=== PATIENT | male | born 1975 | race Caucasian/White ===

== ENCOUNTER 2017-07-05 18:38 | Emergency (ER) | payer SELFPAY ==
[2017-07-05] MEDS ORDERED: Fluorescein Opthalmic Strip ONE (19:06)
== END 2017-07-05 19:18 | disposition home or self-care (01) ==
LOC: SCSER 18:38
DX: H10.13 Acute atopic conjunctivitis, bilateral (principal); F17.220 Nicotine dependence, chewing tobacco, uncomplicated
CPT/HCPCS: 99283

== ENCOUNTER 2021-11-05 22:07 | Inpatient (IN) | payer SELFPAY ==
[~2021-11-05 22:07] MED LIST: Iopamidol-370 76% 500 ML 1 ML ONE
[2021-11-05] MEDS ORDERED: Ketamine 50 MG/ML (10ML VIAL) ONE (22:46)
[2021-11-06 00:02] LABS: #Eosinphils 0.1 thou/uL (0.0-0.7); #Lymphocytes 0.8 thou/uL (1.20-3.40); #Monocytes 0.7 thou/uL (0.11-0.59); #Neutrophils 10.7 thou/uL (1.40-6.50); %Basophils 0.1 % (0.0-1.0); %Eosinophils 0.5 % (0.0-10.0); %Lymphocytes 6.7 % (21.0-51.0); %Monocytes 5.9 % (0.0-10.0); %Neutrophils 86.8 % (42.0-75.0); Hemoglobin 13.5 g/dL (14.0-18.0); Mean Corpuscular HGB CONC 34.6 g/dL (32.0-36.0); Mean Corpuscular Hemoglobin 32.5 pg (27.0-31.0); Mean Corpuscular Volume 93.9 fL (78.0-98.0); Mean Platelet Volume 8.2 fL (7.4-10.4); Platelet Count 131 thou/uL (130-400); RBC Distribution Width 11.7 % (11.5-14.5); Red Blood Cell (RBC) Count 4.15 mill/uL (4.70-6.10); White Blood Cell (WBC) Count 12.3 thou/uL (4.8-10.8)
[2021-11-06 00:28] LABS: ALT (SGPT) 120 U/L (8-55); AST (SGOT) 118 U/L (5-34); Alcohol 147 mg/dL (Less than 10); Alkaline Phosphatase 50 U/L (40-110); Anion Gap 16 mmol/L (10-20); BUN (Urea Nitrogen) 7 mg/dL (8.9-20.6); Bilirubin, Total 0.7 mg/dL (0.2-1.2); Calc. Creatinine Clearance 0 mL/min (70-130); Calcium 8.7 mg/dL (7.8-10.44); Carbon Dioxide 25 mmol/L (22-29); Chloride 98 mmol/L (98-107); Estimated GFR 101; Glucose 105 mg/dL (70-105); Lipase 27 U/L (8-78); Potassium 3.6 mmol/L (3.5-5.1); Sodium 135 mmol/L (136-145)
[2021-11-06] MEDS ORDERED: Morphine 2 MG/ML VIAL ONE (01:19)
[2021-11-06] MEDS ORDERED: Morphine 4 MG/ML VIAL ONE (01:19)
[2021-11-06] MEDS ORDERED: Ondansetron PF 4 MG/2 ML Vial ONE (01:19)
[2021-11-06] MEDS ORDERED: Ketorolac Tromethamine 30 MG/ML VIAL ONE (01:19)
[2021-11-06] MEDS ORDERED: Dextrose 5% in Water 1,000 ML IV PRN (01:24)
[2021-11-06] MEDS ORDERED: hydrALAZINE 20 MG/ML VIAL SLOW IVP PRN (01:24)
[2021-11-06] MEDS ORDERED: Ondansetron PF 4 MG/2 ML Vial IVP PRN (01:24)
[2021-11-06] MEDS ORDERED: Dextrose 50% Abboject 50 ML SYRINGE SLOW IVP PRN (01:24)
[2021-11-06] MEDS ORDERED: Cyclobenzaprine 10 MG TAB PO PRN (01:27)
[2021-11-06] MEDS ORDERED: Acetaminophen/Codeine 30-300mg Tablet PO PRN (01:28)
[2021-11-06 02:42] VITALS: BMI 32.4
[2021-11-06] MEDS ORDERED: Gabapentin 300 MG CAP PO SCH (03:00)
[2021-11-06] MEDS ORDERED: Lidocaine 5% Patch TD SCH (03:00)
[2021-11-06] MEDS ORDERED: Sodium Chloride 0.9% 1,000 ML IV SCH (03:00)
[2021-11-06] MEDS: Morphine 4 MG/ML VIAL SLOW IVP PRN ×2 (03:04→08:58)
[2021-11-06] MEDS: Oxazepam 10 MG CAP PO SCH ×2 (05:27→12:19)
[2021-11-06] MEDS: Acetaminophen/Codeine 30-300mg Tablet PO SCH ×2 (05:28→12:16)
[2021-11-06] MEDS: Ketorolac Tromethamine 30 MG/ML VIAL IVP SCH ×2 (05:29→12:17)
[2021-11-06] MEDS: Acetaminophen 325 MG TAB PO SCH ×2 (05:29→12:16)
[2021-11-06 05:44] LABS: SARS-CoV-2 NAA Rapid Test Not Detected (NotDetected)
[2021-11-06 06:23] LABS: Amphetamine Not Detected (NotDetected); Barbiturates Screen Not Detected (NotDetected); Benzodiazepine Screen Not Detected (NotDetected); Cocaine Metabolite Screen Not Detected (NotDetected); Methadone Detected (NotDetected); Methamphetamine Not Detected (NotDetected); Opiate Screen Not Detected (NotDetected); Oxycodone Screen Not Detected (NotDetected); Phencyclidine (PCP) Not Detected (NotDetected); THC/Cannabinoid Screen Not Detected (NotDetected); Tricyclic Screen Not Detected (NotDetected)
[2021-11-06] MEDS: Gabapentin 300 MG CAP PO SCH ×2 (08:56→15:54)
[2021-11-06] MEDS ORDERED: Multivitamin W/ Minerals 1 TAB PO SCH (09:00)
[2021-11-06] MEDS ORDERED: Polyethylene Glycol 3350 17 GM Packet PO SCH (09:00)
[2021-11-06] MEDS ORDERED: Thiamine 100 MG TAB PO SCH (09:00)
[2021-11-06] MEDS ORDERED: Folic Acid 1 MG TAB PO SCH (09:00)
[2021-11-06] MEDS ORDERED: Famotidine 20 MG TAB PO SCH (09:00)
[2021-11-06] MEDS ORDERED: Senokot S 8.6-50 MG TAB PO SCH (09:00)
[2021-11-06 16:07] VITALS: BP 144/81; TEMP 98.2
[2021-11-06] MEDS ORDERED: Transdermal Patch Removal TOP SCH (21:00)
[2021-11-07] MEDS ORDERED: Lidocaine 5% Patch TD SCH (09:00)
== END 2021-11-06 18:20 | disposition home or self-care (01) | DRG 552 ==
LOC: ERS 22:07 → SURG A 11-06 01:28
PROVIDERS: ADMIT Specialist; ATTEND Surgery
DX: S22.089A Unspecified fracture of T11-T12 vertebra, initial encounter for closed fracture (principal); S27.321A Contusion of lung, unilateral, initial encounter; S22.42XA Multiple fractures of ribs, left side, initial encounter for closed fracture; S42.102A Fracture of unspecified part of scapula, left shoulder, initial encounter for closed fracture; S22.059A Unspecified fracture of T5-T6 vertebra, initial encounter for closed fracture; S22.069A Unspecified fracture of T7-T8 vertebra, initial encounter for closed fracture; Z20.822 Contact with and (suspected) exposure to COVID-19; Z79.899 Other long term (current) drug therapy; W17.89XA Other fall from one level to another, initial encounter; F10.129 Alcohol abuse with intoxication, unspecified
CPT/HCPCS: 36415; 70450; 71260; 72125; 74177; 76377; 80053; 80306; 80307; 83690; 85025; 86850; 86900; 86901; 93005; 94640; G0390; J1885; J2270; J2405; J7050; J7620; Q9967; U0002